=== PATIENT | female | born 1970 | race Caucasian/White ===

== ENCOUNTER 2020-04-14 20:16 | Emergency (ER) | payer MEDICAID, SELFPAY ==
[~2020-04-14] VITALS: Ht 154.9 cm; Wt 60.8 kg
[2020-04-14 20:19] VITALS: Ht 154.9 cm; Wt 60.8 kg
[2020-04-14 22:02] VITALS: BP 110/63
== END 2020-04-14 22:02 | disposition home or self-care (01) ==
LOC: ED 20:16
DX: R51.9 Headache, unspecified (principal); R11.2 Nausea with vomiting, unspecified
CPT/HCPCS: J1885; Q0162